=== PATIENT | female | born 1990 | race Caucasian/White ===

== ENCOUNTER 2016-10-28 17:50 | Emergency (ER) | payer SELFPAY | END 2016-10-28 20:04 | disposition left against medical advice (07) | LOC: E/R 17:50 | DX: Z53.21 Procedure and treatment not carried out due to patient leaving prior to being seen by health care provider (principal) ==

== ENCOUNTER 2017-01-15 09:18 | Day surgery (SDC) | payer BC ==
[~2017-01-15] VITALS: Ht 144.8 cm; Wt 78.9 kg
[~2017-01-15 09:18] MED LIST: CEFAZOLIN 2 GM/50 ML (PMX) 50 ML IVPB SCH; SOD CHLORIDE 0.9% 1,000 ML IV SCH
[2017-01-15 12:23] VITALS: BP 128/70; PULSE 76; RESP 16; Ht 144.8 cm; Wt 78.9 kg
[2017-01-15] MEDS ORDERED: BUPIVACAINE 0.25% (MPF) 30 ML INJ ONE (13:00)
[2017-01-15] MEDS ORDERED: FENTAnyl 50 MCG/ML VIAL ONE (13:30)
[2017-01-15] MEDS ORDERED: MIDAZOLAM 1 MG/ML 2 ML INJ ONE (13:30)
[2017-01-15] MEDS ORDERED: PROPOFOL 20 ML ONE (13:30)
[2017-01-15] MEDS ORDERED: CEFAZOLIN 1 GM INJ ONE (13:40)
[2017-01-15] MEDS ORDERED: LIDOCAINE 2% (MDV) 20 ML INJ ONE (13:49)
--- NOTE | 2017-01-15 13:58 | OPR ---
Date/Time of Note Date/Time of Note DATE: 01/15/17 TIME: 13:57 Operative Report Procedure Date: January 15, 2017 Preoperative Diagnosis left gluteal mass Postoperative Diagnosis same Operation Performed left gluteal mass excision 3 cm incision 2 cm mass localized adjacent tissue transfer with the use of skin flaps 3 sq cm defect Surgeon: Malia DEL VALLE Specimens left gluteal mass Malia DEL VALLE January 15, 2017 13:58
[2017-01-15] MEDS ORDERED: ONDANSETRON 4 MG INJ IV PRN (14:00)
[2017-01-15] MEDS ORDERED: MIDAZOLAM 1 MG/ML 2 ML INJ IV PRN (14:00)
[2017-01-15] MEDS ORDERED: FENTAnyl 50 MCG/ML VIAL IV PRN ×2 (14:00)
[2017-01-15] MEDS ORDERED: DIPHENHYDRAMINE 50 MG INJ IV PRN (14:00)
[2017-01-15] MEDS ORDERED: ACETAMINOPHEN/CODEINE #3 TAB PO ONE (14:00)
[2017-01-15] MEDS ORDERED: morphine (1 MG/ML) 10ML SYRINGE IV PRN ×2 (14:00)
[2017-01-15] MEDS ORDERED: METOCLOPRAMIDE 10 MG INJ IV PRN (14:00)
[2017-01-15] MEDS ORDERED: MEPERIDINE 25 MG INJ IV PRN (14:00)
[2017-01-15 14:02] VITALS: BP 105/63; PULSE 77; RESP 18
[2017-01-15 14:07] VITALS: BP 114/65; PULSE 74; RESP 18
[2017-01-15 14:12] VITALS: BP 108/60; PULSE 74; RESP 15
[2017-01-15 14:17] VITALS: BP 111/62; PULSE 72; RESP 20
[2017-01-15 14:28] VITALS: BP 108/61; PULSE 80; RESP 18
--- NOTE | 2017-01-15 14:33 | OPR ---
DATE OF OPERATION: 01/15/2017 INDICATION: This is a 26-year-old female with a left gluteal mass. She requests surgical excision. Risks, alternatives, benefits, and personnel were discussed with the patient. The patient express ed understanding and consents to the operation. PREOPERATIVE DIAGNOSIS: Left gluteal mass. POSTOPERATIVE DIAGNOSIS: Left gluteal mass. OPERATION PERFORMED: 1. Left gluteal mass excision with 3 cm size incision and 2 x 1 cm size mass. 2. Localized adjacent tissue transfer with the use of skin flaps with 3 square cm defect. SURGEON: Malgorzata Sandra MD SPECIMEN: Left gluteal mass. COMPLICATIONS: None. ANESTHESIA: MAC. PROCEDURE: The patient was taken to the OR and prepped and draped in the usual sterile fashion. Machado rgical timeout was performed. IV antibiotics were given. An elliptical incision is made with a 15 blade around the mass. Dissection cautery was carried down to the mass and circumferentially excise d. There was good hemostasis. Due to the tissue defect, localized adjacent tissue transfer with th e use of skin flaps was performed. Multilayer closure with interrupted 3-0 Vicryl and skin mi. Local anesthesia was injected at the beginning of the case and at the end of the case. Dry dressi ngs were applied. Dictated By: MALGORZATA SANDRA MD SB/MATT Conf#: [id number] DID#: [id number]
== END 2017-01-15 14:54 | disposition home or self-care (01) ==
LOC: SDS 09:18
PROVIDERS: ATTEND Surgery
DX: R22.2 Localized swelling, mass and lump, trunk (principal); E66.01 Morbid (severe) obesity due to excess calories; Z68.37 Body mass index [BMI] 37.0-37.9, adult
CPT/HCPCS: 14000; 88307; J0690; J2250; J3010; Z7512; Z7610